=== PATIENT | male | born 1945 | race Hispanic/Latino ===

== ENCOUNTER → 2025-02-21 | Outpatient (CLI) | payer OTHER, MEDICARE ==
--- NOTE | 2025-02-21 17:21 | HMCIMG ---
CT HEAD/BRAIN W/O CONTRAST HISTORY: Altered mental status COMPARISON: None TECHNIQUE: Multiple sequential axial images of the head were obtained from the base of the skull through vertex. Patient was not given contrast through intravenous route. FINDINGS: The ventricles and extraventricular CSF spaces are dilated consistent with cerebral atrophy. Nonspecific white matter changes seen. 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 There is no midline shift, mass effect or herniation. No acute intracranial bleed is seen. Visualized portion of the paranasal sinuses are grossly within normal limits. IMPRESSION: 1. No acute intracranial bleed is seen. 2. Atrophy with white matter changes. CT was performed with one or more following dose reduction techniques: automated exposure control, adjustment of the mA and kv according to patient's size, or use of a iterative reconstruction technique.
== END | disposition home or self-care (01) ==
LOC: RAH 13:23
PROVIDERS: ATTEND Family Medicine
DX: G31.9 Degenerative disease of nervous system, unspecified (principal); R41.82 Altered mental status, unspecified
CPT/HCPCS: 70450

== ENCOUNTER 2025-06-20 07:14 | Observation (INO) | payer OTHER, MEDICAID ==
[2025-06-19 12:15] LABS: IMMATURE GRANULOCYTE ABSOLUTE 0.02 K/uL (0-1); NUCLEATED RED BLOOD CELLS 0.0 % (0.0-0.19); PLATELET COUNT (AUTO) 147 K/uL (130-400); RED BLOOD CELL COUNT(AUTO) 4.82 MIL/uL (4.50-6.20); RED CELL DISTRIBUTION WIDTH 12.8 % (11.0-15.5); WHITE BLOOD COUNT (AUTO) 7.5 K/uL (4.8-10.8)
[2025-06-19 12:16] LABS: APPEARANCE,URINE CLEAR (CLEAR); GLUCOSE, URINE (UA) NEGATIVE (NEGATIVE); LEUKOCYTE ESTERASE ,URINE 75 Leu/uL (NEGATIVE); NITRATE,URINE NEGATIVE (NEGATIVE); OCCULT BLOOD,URINE SMALL (NEGATIVE)
[2025-06-19 12:20] LABS: ADD UA MICROSCOPIC YES
[2025-06-19 12:23] LABS: SQUAMOUS EPITHELIAL CELL,UR RARE /HPF (0-2)
[2025-06-19 12:23] LABS: CREATININE 0.8 mg/dL (0.5-1.3); GLOMERULAR FILTR. RATE CALC 91.0 mL/min (>90); GLUCOSE,RANDOM 92.0 mg/dL (70-105); SODIUM SERUM 142.0 mmol/L (136-145); UREA NITROGEN, BLOOD 16.0 mg/dL (7-18)
[2025-06-19 12:26] LABS: INR 1.02 (0.85-1.15)
[2025-06-19 12:38] VITALS: BP 165/68; PULSE 54; RESP 15; TEMP 98.4
--- NOTE | 2025-06-19 12:40 | NUR ---
RE: IS INITIAL IS INITIAL TEACHING DONE BY RT WONG DURING PREOP.
--- NOTE | 2025-06-19 14:00 | NUR ---
RE: LABS REPORTED UA RESULTS TO DR CASTRO (CULTURE PENDING). RECEIVED ORDERS FOR LEVOFLOXACIN 500MG IVPB TO BE GIVEN IN OR HOLDING.
[2025-06-20] VITALS (29 sets, daily range): BP systolic 144–190; BP diastolic 66–93; PULSE 55–100; RESP 15–18; TEMP 97.5–98.5; O2SAT 100
[~2025-06-20] VITALS: Ht 167.6 cm; Wt 92.1 kg
[~2025-06-20 07:14] MED LIST: TRANEXAMIC ACID 1000MG/10ML ONE; TRAZ-185 PO; VANCOMYCIN 500MG+NS 100ML 100 ML IV ONE
[2025-06-20] MEDS: LACTATED RINGERS 1000ML 1,000 ML IV ONE (07:58)
[2025-06-20 08:09] LABS: CREATININE 0.8 mg/dL (0.5-1.3); GLOMERULAR FILTR. RATE CALC 91.0 mL/min (>90); GLUCOSE,RANDOM 93.0 mg/dL (70-105); SODIUM SERUM 145.0 mmol/L (136-145); UREA NITROGEN, BLOOD 18.0 mg/dL (7-18)
[2025-06-20] MEDS ORDERED: MIDAZOLAM HCL 1 MG/ML 2ML VIAL ONE (10:40)
[2025-06-20] MEDS: TRANEXAMIC ACID 1000MG/10ML IV ONE ×2 (10:55)
[2025-06-20] MEDS ORDERED: GLYCOPYRROLATE 0.2 MG/ML 5 ML VIAL ONE (11:16)
[2025-06-20] MEDS ORDERED: PoTASSium chl 10% ELIXIR 20MEQ 20 MEQ/15 ML UDCUP PO PRN (13:00)
[2025-06-20] MEDS ORDERED: PoTASSium chloRIDE 20MEQ ER 20 MEQ ERTAB PO PRN (13:00)
[2025-06-20] MEDS ORDERED: CALCIUM CARB 500MG PO PRN (13:00)
[2025-06-20] MEDS ORDERED: FERROUS FUMARATE 324 MG TABLET PO PRN (13:00)
--- NOTE | 2025-06-20 13:12 | OP ---
Operative Note: DATE OF PROCEDURE: 06/20/25 SURGEON: RICHI CASTRO MD SENIOR INTERNAL AUDITOR: [Sonia Herrera CFA] ANESTHESIA: [General anesthesia plus regional block] ANESTHESIOLOGIST/CONSTRUCTION SUPERINTENDENT: [Christophe Medina CRNA] PREOPERATIVE DIAGNOSIS: [Left knee osteoarthritis] POSTOPERATIVE DIAGNOSIS: [Left knee osteoarthritis] IMPLANTS: [Biomet vanguard. Femur size 72.5 left PS. Tibia plate size 79 fixed cruciate. Tibial liner size 12 x 79/83 PS. Patella size 37 x 10, asymmetric.] PROCEDURE: [Left total knee arthroplasty] ESTIMATED BLOOD LOSS: [100 mL] INDICATIONS: [79-year-old male with a history of severe arthritis to both of his knees that is being admitted for a left total knee arthroplasty. The patient has been treated conservatively with no much improvement. The patient understood the need for the procedure, risks, benefits and possible complications and has signed the consent form] DESCRIPTION OF PROCEDURE: [After adequate general anesthesia was achieved and regional block obtained the left lower extremity was prepped and draped in the usual manner previous placement of the tourniquet in the proximal thigh. The extremity was then elevated and exsanguinated with an Esmarch bandage and the tourniquet inflated to 300 mmHg the Esmarch band been then removed. With the knee in flexion a longitudinal incision was then made in the anterior aspect through the skin followed by dissection of the subcutaneous tissue. A bone infusion needle was then inserted just medial to the tibial tuberosity and through this needle we injected into the bone a solution of normal saline 50 mL mixed with 500 mg of vancomycin. The needle was removed. A paramedian approach was then made with the Bovie cautery cutting through the quadriceps tendon, medial patellar retinaculum and patellar tendon retinaculum. The retropatellar tendon fat was then excised and the soft tissue elements of the tibia were elevated subperiosteally and retractors were applied medially and laterally . The anterior and posterior cruciate ligaments were resected. With the use of a drill a starting hole was made in the distal femur entering the intramedullary canal and then after removal of the drill an intramedullary guide was inserted with a 5 degree valgus block that touched the distal femur and to this the distal femoral cutting guide was then applied anteriorly and was secured to the distal femur with the use of pins. The intramedullary guide was then removed and with the use of the oscillating saw we proceeded to resect the distal femur removing the fragments and the guide. The femoral sizer was then applied distally and drill holes were made removing the sizer and the 4-in-1 cutting block was then inserted and the anterior, posterior and chamfer cuts were made removing the fragments and the block. The PS cutting guide was then inserted and the intercondylar cut was made removing the fragment and the guide. The posterior cruciate ligament retractor was then inserted posterior to the tibia and this was brought forward proceeding then to apply the external tibial alignment guide and secured the proximal cutting guide to the tibia with the use of pins. With the use of the oscillating saw the proximal cut to the tibia tibia was made. The bone fragment was removed and the trial tibia plate was chosen. At this point the menisci were removed sharply and with the use of the curved osteotome the posterior osteophytes of the femur were removed. The trial components were then inserted at the femur and tibia with a trial tibial liner bringing the knee into extension noticing that the patient had a very stable knee in flexion, extension and with valgus and varus stress. The knee was maintained in extension and the patella was then addressed proceeding to measure its thickness and then with the use of the oscillating saw we removed eight mm from the articular surface and restored the height with application of a trial c omponent after 3 peg holes were made. The patellofemoral ligament was removed and then the patellofemoral tracking was checked noticing to be slightly lateralized with flexion for this reason a lateral retinacular release was performed correcting the tracking back to normal. At this moment all the components were removed, the tibia after the metaphyseal defect was created and while cement was being mixed on the back table we proceeded to irrigate the joint with antibiotic solution and then cover the entry to the femoral canal with a bone plug. Once the cement was ready we proceeded to apply it first to the tibia surface inserting the final component and then to the femoral surface and inserted the final component removing the excess cement and then applying a trial liner bringing the knee into extension for compression. Then we proceeded to irrigate the patella surface and dried it applying then bone cement and the final patellar component was inserted and was secured with application of a clamp. The joint was irrigated with a warm diluted Betadine solution while the cement dried followed by irrigation with antibiotic solution. The trial liner was removed as well as the patellar clamp and we proceeded then to irrigate the posterior aspect of the joint to remove all the remaining debris and the final tibial liner was inserted and locked against the tibia. The range of motion was checked and noticed to be adequate with full extension and flexion, no laxity in valgus or varus stress and with adequate patellofemoral tracking. The patient had no anterior or posterior drawer. The tourniquet was then deflated and this was followed by hemostasis and the wound was then closed with approximation of the quadriceps tendon, patellar retinaculum and patellar tendon retinaculum with #1 Vicryl close stitches alternating with #1 Ethibond stitches, and closure of the subcutaneous tissue with 2-0 Monocryl inverted stitches and the skin was closed with 3-0 Monocryl subcuticularly. The wound was covered with a suction dressing followed by application of an Sotero bandage for compression and the drapes were then removed transferring the patient to the hospital bed and taken to recovery room for follow-up by anesthesia. There were no complications during the procedure.] RICHI CASTRO MD Jun 20, 2025 13:12
[2025-06-20] MEDS ORDERED: NEOSTIGMINE METHYLSULFATE 1MG/ML IV ONE (13:28)
[2025-06-20] MEDS: GABAPENTIN 300 MG CAPSULE ONE (14:26)
[2025-06-20] MEDS: TRANEXAMIC ACID 1000MG/10ML ONE (14:52)
--- NOTE | 2025-06-20 15:03 | NUR ---
RECEIVED FROM MED SURGE PATIENT GIVEN TO ME IN SUPINE POSITION BY VIKAS SPEAR PACU. PATIENT'S ANDREW DRESSING IN TACT AND FLASHING GREEN, NO DRAINAGE. VITALS WITHIN RANGE. SCD'S AND ICE PACKS APPLIED. WILL CONTINUE TO MONITOR PATIENT'S PLAN OF CARE.
[2025-06-20] MEDS: 0.9%NACL 1000ML 1,000 ML IV SCH (15:37)
--- NOTE | 2025-06-20 16:45 | NUR ---
ORTHO COORDINATOR: ATTEMPTED TEACHING, PHYSICAL THERAPY AT BEDSIDE.
--- NOTE | 2025-06-20 20:44 | NUR ---
BLADDER SCAN BLADDER SCAN AND STRAIGHT CATH PERFORMED BY BEATRIS SHORT AND MARINA PRICE PER PATIENT REQUEST PATIENT REQUESTED ONLY MALE STAFF PATIENT HAD 594 ML PER BLADDER SCAN, PATIENT STOOD UP, UNABLE TO PEE ON HIS OWN AT THIS TIME PER ORDERS, PATIENT REQUIRED STRAIGHT CATH PATIENT TOLERATED STRAIGHT CATH AT THIS TIME, STILL DRAINING
[2025-06-20] MEDS: FAMOTIDINE 20MG TAB PO SCH (22:03)
[2025-06-20] MEDS: ASPIRIN 81 MG EC TAB PO SCH (22:03)
[2025-06-21] VITALS (7 sets, daily range): BP systolic 140–168; BP diastolic 72–81; PULSE 56–87; RESP 16–20; TEMP 97.5–98.2; O2SAT 96–97
--- NOTE | 2025-06-21 04:22 | NUR ---
BLADDER SCAN 392 ML ON BLADDER SCAN AT THIS TIME. PATIENT ATTEMPTED OT VOID, UNSUCCESSFUL Addendum: 06/21/25 at 0423 by SULEIMAN PORTILLO RN RN PATIENT ATTEMPTED TO VOID, MISSPELLED.
--- NOTE | 2025-06-21 04:23 | NUR ---
BLADDER SCAN REPEAT SCAN AT THIS TIME 491 ML.
[2025-06-21 05:44] LABS: NUCLEATED RED BLOOD CELLS 0.0 % (0.0-0.19); PLATELET COUNT (AUTO) 126.0 K/uL (130-400); RED BLOOD CELL COUNT(AUTO) 4.35 MIL/uL (4.50-6.20); RED CELL DISTRIBUTION WIDTH 12.8 % (11.0-15.5); WHITE BLOOD COUNT (AUTO) 5.8 K/uL (4.8-10.8)
--- NOTE | 2025-06-21 05:47 | NUR ---
POST VOID RESIDUAL PATIENT ABLE TO VOID A SMALL AMOUNT AT THIS TIME, UNABLE TO COUNT SINCE VOID WENT INTO TOILET. PATIENT FEELS BETTER SENSATION TO VOID WHEN STANDING. POST VOID RESIDUAL 489 ML PER BLADDER SCAN. [address] CASTRO MADE AWARE OF PATIENT'S DIFFICULTY URINATING DURING SHIFT.
[2025-06-21 06:02] LABS: CREATININE 0.9 mg/dL (0.5-1.3); GLOMERULAR FILTR. RATE CALC 88.0 mL/min (>90); GLUCOSE,RANDOM 120.0 mg/dL (70-105); SODIUM SERUM 138.0 mmol/L (136-145); UREA NITROGEN, BLOOD 11.0 mg/dL (7-18)
--- NOTE | 2025-06-21 08:04 | PN ---
Ortho postop day one. This morning the patient is awake alert and oriented. He is already out of bed seated in a chair resting comfortably no acute distress enjoying his breakfast. He is been afebrile vital signs have been stable. Patient has some difficulty with the urine retention overnight however this morning he has already voided on his own. Denies any discomfort at this time. Laboratory results reviewed. Noted to have a drop in hemoglobin and hematocrit as expected after TKA. Patient is currently asymptomatic we will continue to observe and treat per protocol as necessary. Reinforced incentive spirometry. The Sotero bandage has been removed. The peyman dressing is flashing green. Dressing intact. Gastrocnemius soft nontender. Negative Homans. Ice is present to the extremity. He did ambulate yesterday a few feet with the therapy Anticipating discharge goal is home with a home health/PT. Therapy this morning. Operative findings discussed with the patient Assessment: Status post left total knee arthroplasty. Acute postoperative blood loss anemia. Plan: Continue with Dr. Madrigal was TKA protocol and discharge planning. Acute postoperative blood loss anemia addressed with the protocol as necessary Vitals/Labs Vital Signs Date Time Temp Pulse Resp B/P (MAP) Pulse Ox O2 Delivery O2 Flow Rate FiO2 06/21/25 07:44 98.1 56 18 141/72 96 Room Air 06/21/25 00:00 3.0 06/20/25 20:00 21 Laboratory Tests 06/21/25 05:29 Medications Current Medications Levofloxacin/ Dextrose 100 ml @ 100 mls/hr ONCE IV Last administered on 06/20/25at 08:00; Start 06/20/25 at 07:30; Stop 06/20/25 at 13:14; Status DC Tranexamic Acid 1,000 mg STK-MED ONCE .ROUTE; Start 06/20/25 at 07:05; Stop 06/20/25 at 07:05; Status DC Cefazolin Sodium 1 gm STK-MED ONCE .ROUTE; Start 06/20/25 at 07:05; Stop 06/20/25 at 07:05; Status DC Vancomycin HCl 100 ml @ As Directed STK-MED ONCE IV; Start 06/20/25 at 07:05; Stop 06/20/25 at 07:06; Status DC Levofloxacin/ Dextrose 100 ml @ As Directed STK-MED ONCE .ROUTE; Start 06/20/25 at 07:57; Stop 06/20/25 at 07:58; Status DC Cefazolin Sodium 2 gm STK-MED ONCE .ROUTE; Start 06/20/25 at 07:57; Stop 06/20/25 at 07:58; Status DC Lactated Ringer's 1,000 ml @ As Directed STK-MED ONCE IV; Start 06/20/25 at 07:58; Stop 06/20/25 at 07:58; Status DC Tranexamic Acid 1,000 mg STK-MED ONCE IV; Start 06/20/25 at 00:00; Stop 06/20/25 at 00:01; Status Cancel Cefazolin Sodium 3 gm STK-MED ONCE IVPB; Start 06/20/25 at 00:00; Stop 06/20/25 at 00:01; Status Cancel Vancomycin HCl 500 mg STK-MED ONCE IVPB; Start 06/20/25 at 00:00; Stop 06/20/25 at 00:01; Status Cancel Midazolam HCl 2 mg STK-MED ONCE .ROUTE; Start 06/20/25 at 10:40; Stop 06/20/25 at 10:40; Status DC Propofol 200 mg STK-MED ONCE IV; Start 06/20/25 at 10:42; Stop 06/20/25 at 10:42; Status DC Rocuronium Monrovia 50 mg STK-MED ONCE .ROUTE; Start 06/20/25 at 10:42; Stop 06/20/25 at 10:42; Status DC Fentanyl Citrate 100 mcg STK-MED ONCE .ROUTE; Start 06/20/25 at 10:42; Stop 06/20/25 at 10:43; Status DC Ropivacaine 150 mg STK-MED ONCE .ROUTE; Start 06/20/25 at 10:52; Stop 06/20/25 at 10:52; Status DC Glycopyrrolate 1 mg STK-MED ONCE .ROUTE; Start 06/20/25 at 11:16; Stop 06/20/25 at 11:16; Status DC Rocuronium Monrovia 50 mg STK-MED ONCE .ROUTE; Start 06/20/25 at 11:25; Stop 06/20/25 at 11:25; Status DC Ephedrine Sulfate 50 mg STK-MED ONCE .ROUTE; Start 06/20/25 at 12:39; Stop 06/20/25 at 12:40; Status DC Sodium Chloride 1,000 ml @ 100 mls/hr Q10H IV Last administered on 06/20/25at 15:37; Start 06/20/25 at 13:00; Stop 06/21/25 at 12:59 Polyethylene Glycol 17 gm DAILY PO; Start 06/21/25 at 09:00; Stop 07/21/25 at 08:59 Bisacodyl 10 mg DAILY PRN RC; Start 06/23/25 at 13:00; Stop 07/23/25 at 12:59 Ketorolac Tromethamine 15 mg Q6H PRN IV Last administered on 06/20/25at 14:42; Start 06/20/25 at 13:00; Stop 06/25/25 at 12:59 Famotidine 20 mg BID PO Last administered on 06/20/25at 22:03; Start 06/20/25 at 21:00; Stop 07/20/25 at 20:59 Tamsulosin HCl 0.4 mg DAILY PO; Start 06/21/25 at 09:00; Stop 07/21/25 at 08:59 Ferrous Fumarate 324 mg DAILY PRN PO; Start 06/20/25 at 13:00; Stop 07/20/25 at 12:59 Ondansetron HCl 4 mg Q6H PRN IVP; Start 06/20/25 at 13:00; Stop 07/20/25 at 12:59 Calcium Carbonate 500 mg Q12H PRN PO; Start 06/20/25 at 13:00; Stop 07/20/25 at 12:59 Diphenhydramine HCl 25 mg Q6H PRN IVP; Start 06/20/25 at 13:00; Stop 07/20/25 at 12:59 Cefazolin Sodium 2 gm Q8H IVPB Last administered on 06/21/25at 01:40; Start 06/20/25 at 18:00; Stop 06/21/25 at 02:01; Status DC Potassium Chloride 100 ml @ 100 mls/hr AD PRN IV; Start 06/20/25 at 13:00; Stop 07/20/25 at 12:59 Potassium Chloride 20 meq AD PRN PO; Start 06/20/25 at 13:00; Stop 07/20/25 at 12:59 Potassium Chloride 20 meq AD PRN PO; Start 06/20/25 at 13:00; Stop 07/20/25 at 12:59 Oxycodone HCl 5 mg Q4H PRN PO; Start 06/20/25 at 13:00; Stop 06/27/25 at 12:59 Oxycodone HCl 10 mg Q4H PRN PO Last administered on 06/20/25at 17:03; Start 06/20/25 at 13:00; Stop 06/27/25 at 12:59 Tramadol HCl 50 mg Q6H PRN PO Last administered on 06/21/25at 01:40; Start 06/20/25 at 13:00; Stop 06/25/25 at 12:59 Acetaminophen 1,000 mg Q8H PO Last administered on 06/21/25at 05:46; Start 06/20/25 at 13:00; Stop 07/20/25 at 12:59 Aspirin 81 mg BID PO Last administered on 06/20/25at 22:03; Start 06/20/25 at 21:00; Stop 07/20/25 at 20:59 Ondansetron HCl 4 mg STK-MED ONCE .ROUTE; Start 06/20/25 at 13:28; Stop 06/20/25 at 13:28; Status DC Neostigmine Methylsulfate 10 mg STK-MED ONCE IV; Start 06/20/25 at 13:28; Stop 06/20/25 at 13:28; Status DC Fentanyl Citrate 100 mcg STK-MED ONCE .ROUTE; Start 06/20/25 at 13:28; Stop 06/20/25 at 13:29; Status DC Acetaminophen 100 ml @ As Directed STK-MED ONCE .ROUTE; Start 06/20/25 at 13:30; Stop 06/20/25 at 13:31; Status DC Tranexamic Acid 1,000 mg STK-MED ONCE .ROUTE; Start 06/20/25 at 13:50; Stop 06/20/25 at 13:50; Status DC Hydralazine HCl 20 mg STK-MED ONCE .ROUTE; Start 06/20/25 at 13:56; Stop 06/20/25 at 13:57; Status DC Tranexamic Acid 1,000 mg STK-MED ONCE IV Last administered on 06/20/25at 10:55; Start 06/20/25 at 10:55; Stop 06/20/25 at 14:04; Status DC Cefazolin Sodium 3 gm STK-MED ONCE IVPB Last administered on 06/20/25at 11:25; Start 06/20/25 at 11:25; Stop 06/20/25 at 14:04; Status DC Vancomycin HCl 500 mg STK-MED ONCE IVPB Last administered on 06/20/25at 10:00; Start 06/20/25 at 10:00; Stop 06/20/25 at 14:04; Status DC Morphine Sulfate 2 mg STK-MED ONCE .ROUTE Last administered on 06/20/25at 14:08; Start 06/20/25 at 13:59; Stop 06/20/25 at 13:59; Status DC Fentanyl Citrate 100 mcg STK-MED ONCE .ROUTE Last administered on 06/20/25at 14:18; Start 06/20/25 at 14:14; Stop 06/20/25 at 14:14; Status DC Gabapentin 300 mg STK-MED ONCE .ROUTE Last administered on 06/20/25at 14:26; Start 06/20/25 at 14:20; Stop 06/20/25 at 14:20; Status DC Ketorolac Tromethamine 15 mg STK-MED ONCE .ROUTE; Start 06/20/25 at 14:39; Stop 06/20/25 at 14:39; Status DC Trazodone HCl 50 mg HS PO Last administered on 06/20/25at 22:03; Start 06/20/25 at 21:00; Stop 07/20/25 at 20:59 JHONATAN OVALLE NP Jun 21, 2025 08:04
--- NOTE | 2025-06-21 11:45 | NUR ---
[facility] CM MET WITH PT INITIAL ASSESSMENT DONE. PATIENT IS INDEPENDENT PRIOR TO SURGERY, PT LIVES WITH DAUGHTER AND HER FAMILY AT HOME. PATIENT HAS A BPM, PROVIDER 20HRS PER WEEK. DENIES ANY OTHER EQUIPMENT/SERVICES. FEELS SAFE TO GO BACK HOME, STILL DRIVE PRIOR TO SURGERY, DAUGHTER ABLE TO ASSIST WITH TRANSPORTATION AND NEEDS NECESSARY. DISCUSSED MD RECOMMENDATIONS HOME W/HH FOR PT, PT WILL ALSO NEED A STANDARD WALKER. PT AGREEABLE, CONSENT SIGNED THERESA FOR [facility]. [facility] W/HH & DME ONCE APPROVED. CM TO CONTINUE TO FOLLOW UP. Addendum: 06/21/25 at 1540 by DHARMESH CORONADO LVN Amended: Links added.
--- NOTE | 2025-06-21 18:15 | NUR ---
ORTHO COORDINATOR: ATTEMPTED TEACHING REGARDING DVT AND PNEUMONIA PREVENTION, PAIN MANAGEMENT. PATIENT IN BED. WELSH SPEAKING ONLY. INCENTIVE SPIROMETER AT BEDSIDE AND B SCD SLEEVES IN PLACE AND FUNCTIONING. ANDREW DRESSING INTACT, CLEAN AND DRY. ANDREW SYSTEM FUNCTIONING, LIGHT FLASHING GREEN. PATIENT HAS HISTORY OF TIA AND SEEMS TO HAVE DIFFICULTLY WITH QUESTIONS. PATIENT REPORTS PASSING GAS. PATIENT INTENDS TO DISCHARGE HOME AND HAS FAMILY MEMBERS CARE GIVERS. 1835 REPORT TO CHARGE. REQUESTED DISCHARGE INSTRUCTIONS AND ANDREW DRESSING CARE BE DISCUSSED WITH FAMILY MEMBER CARING FOR PATIENT AT HOME. CHARGE ACKNOWLEDGED COMMUNICATION.
[2025-06-22 04:19] VITALS: BP 176/83; PULSE 78; RESP 18; TEMP 98.5
[2025-06-22 08:00] VITALS: BP 162/81; PULSE 68; RESP 16; TEMP 98.3; O2SAT 96
--- NOTE | 2025-06-22 10:30 | NUR ---
[facility] NOTE: POC PT HAS APPROVAL FOR [facility]. PENDING APPROVAL AND DELIVERY FOR WALKER W/[facility]. CM LEND WALKER IN ROOM TODAY, INSTRUCTED PT TO HAVE FAMILY RETURN BORROWED WALKER ONCE OWN WALKER DELIVERED BY [facility] TO FOLLOW UP W/[facility] TUESDAY. PT SAFE TO DC HOME W/ ONCE MD CLEARED. PRIMARY NURSE LÁZARO NICOLAS. CM TO CONTINUE TO FOLLOW UP.
[2025-06-22] MEDS: LISINOPRIL 5 MG TABLET PO SCH (10:49)
[2025-06-22 11:48] VITALS: BP 124/76; PULSE 88; RESP 16; TEMP 98.2
[2025-06-22 15:22] VITALS: BP 133/62; PULSE 93; RESP 16; TEMP 97.4
[2025-06-22] MEDS ORDERED: HYDR-4060 PO (16:00)
[2025-06-22] MEDS ORDERED: AEC81 PO (16:00)
[2025-06-22] MEDS ORDERED: TAMS-55 PO (16:00)
--- NOTE | 2025-06-22 16:10 | DS ---
DISCHARGE SUMMARY [Date of admission: 06/20/2025 Date of discharge: 06/22/2025 Final diagnosis: Left Knee osteoarthritis Surgical procedures: Left total Knee arthroplasty on 06/20/2025 Summary of History and Physical: The patient is a 79 year-old male with history of severe arthrosis to the left knee that has been present for several years and has been treated conservatively with no longer adequate response to treatment. The patient is being admitted for total knee arthroplasty. Previous medical history: Hyperlipidemia, hypertension, osteoarthritis, TIA, stroke Previous surgical history: Denies Family history: Denies Social history: Negative for use of tobacco or alcohol. Allergies: NKDA. Review of system: Negative on admission Hospital course: The patient was admitted and taken to the operating room for a total knee arthroplasty, procedure that went uneventful. Postoperatively the patient remained hemodynamically stable and afebrile. The patient received antibiotic and anticoagulation prophylaxis as per protocol. The patient was evaluated by physical therapy and started rehabilitation treatment with ambulation with the use of walker, weightbearing as tolerated, range of motion exercises and bed transfers. The patient was also evaluated by case management and arrangements were made for discharge. The patient tolerated diet well. On postop day #2 all the arrangements were completed and the patient was dismissed. Condition on discharge: Good Disposition: The patient will be dismissed home with home health . Follow-up will be done at the office in 3 weeks. The patient is to continue with physical therapy and rehabilitation at home and be ambulatory with the use of a walker, weightbearing as tolerated. Continue taking pain medication as instructed as well as anticoagulation prophylaxis, the patient was placed on tamsulosin 0.4 mg to take every night for issue of retention. The patient should consult with urologist specialist if symptoms continue. Continue with home medications also as instructed and continue with pre admission diet.] RICHI CASTRO MD Jun 22, 2025 16:10
== END 2025-06-22 18:50 | disposition home or self-care (01) ==
LOC: DAH 07:14 → DAHIP 07:15 → DAH 07:15 → 4BH 14:47
PROVIDERS: ADMIT Orthopaedic Surgery; ATTEND Orthopaedic Surgery
DX: M17.12 Unilateral primary osteoarthritis, left knee (principal); I10 Essential (primary) hypertension; E78.5 Hyperlipidemia, unspecified; M25.562 Pain in left knee; D62 Acute posthemorrhagic anemia; Z86.73 Personal history of transient ischemic attack (TIA), and cerebral infarction without residual deficits; Z79.899 Other long term (current) drug therapy; Z98.890 Other specified postprocedural states
CPT/HCPCS: 80048 ×3; 85025; 85610; 87086; 81001; 36415 ×3; 87641; 27447; 96365; 96366 ×2; 96375; 96367; 64447; 88311; 88304; 97161; 97116 ×5; 97530 ×4; 85027; G0378 ×54; A4223 ×3; C1713 ×2; A4663; J7120 ×2; J0690 ×5; J3010 ×3; J3490 ×6; J1956; J2270; J0360; J2250; J2704; J2405; J2710; J2795; J1885; J3373 ×2; A9272; A4649 ×3; A4930 ×2; C1776; A5120; A4215; A4213; A4222; A4221; A4216